=== PATIENT | male | born 1950 ===

== ENCOUNTER 2017-03-21 09:44 | Day surgery (SDC) | payer OTHER ==
--- NOTE | 2017-03-21 12:02 | CP.SDSHP ---
Same Day Surgery H & P - History Proposed Procedure: US guided FNA of submandibular node. Pre-Op Diagnosis: submandibular node. - Allergies Allergies: Allergies No Known Allergies Allergy (Verified 03/21/17 09:53) - Physical Exam Vital Signs: Vital Signs 03/21/17 09:59 Temperature 97 F L Pulse Rate 82 Respiratory 20 Rate Blood Pressure 147/72 O2 Sat by Pulse 20 L Oximetry Mental Status: Alert & Oriented x3 Neuro: WNL Heart: WNL - Impression Impression: Pt with right and left submandibular nodes. Plan US guided FNA of right submandibular node. Pt. Evaluated Today:Candidate for Anesthesia & Procedure: No Short Stay Discharge - Short Stay Discharge Admitting Diagnosis/Reason for Visit: NECK MASS Disposition: HOME/ ROUTINE
--- NOTE | 2017-03-21 12:03 | PCM.SURG1 ---
Surgeon's Initial Post Op Note - Surgeon's Notes Surgeon: Juan A De Oliveira MD Mixing Picker Tender: NONE Type of Anesthesia: Local Pre-Operative Diagnosis: submandibular node. Operative Findings: US showed bilateral 3 cm submandibular nodes. Post-Operative Diagnosis: submandibular node. Operation Performed: US guided FNA of submandibular node. Specimen/Specimens Removed: 25 g FNA x 6 passes Estimated Blood Loss: EBL {In ML}: 0 Blood Products Given: N/A Drains Used: No Drains Post-Op Condition: Good Date of Surgery/Procedure: 03/21/17 Time of Surgery/Procedure: 12:00
[2017-03-21 12:17] VITALS: BP 136/76; PULSE 60; RESP 18; TEMP 97.9; O2SAT 100
--- NOTE | 2017-03-21 14:54 | US ---
PROCEDURE: Date of procedure: 03/21/2017 Procedure: Ultrasound-guided FNA of right submandibular lymph node, CPT 61400 Ultrasound guidance for biopsy, 30841 Medications: 4cc 1% Lidocaine HISTORY: Enlarged right and left submandibular lymph nodes. TECHNIQUE: Following informed consent and procedure time-out, limited ultrasound patient's right neck demonstrates an enlarged jugular chain lymph node in the submandibular region measuring 3.2 centimeters. Also present enlarged left submandibular lymph node. The lymph node has a fatty hilum. The patient's neck was prepped and draped in the usual sterile fashion. The skin was anesthetized with 1 percent lidocaine. Ultrasound-guided fine needle aspiration was then performed using a 25 gauge needle. A total of 6 passes were made into the lymph node under direct ultrasound guidance. FNA specimens were obtained and sent for routine pathology and flow cytometry. A post biopsy ultrasound showed no hematoma IMPRESSION: Ultrasound-guided FNA of enlarged right neck lymph node.
== END 2017-03-21 12:18 | disposition home or self-care (01) ==
LOC: C.SPRAD 09:44
PROVIDERS: ATTEND Radiology Vascular & Interventional Radiology
DX: R59.0 Localized enlarged lymph nodes (principal); R22.1 Localized swelling, mass and lump, neck

== ENCOUNTER 2017-04-22 06:27 | Day surgery (SDC) | payer OTHER ==
[2017-04-09 08:23] VITALS: BMI 25.9
[2017-04-22] MEDS ORDERED: ceFAZolin IV 1 gm in Dextrose 1 GM/50 ML BAG IVPB ONE (07:28)
[2017-04-22] MEDS ORDERED: Lidocaine 1% w Epi 1:100,000 Inj ONE (07:29)
[2017-04-22] MEDS ORDERED: EPINEPHrine 1:1000 Nasal Sol(30mL) ONE (07:29)
[2017-04-22] MEDS ORDERED: Propofol 10 mg/ml Inj (20 ML) ONE (07:42)
[2017-04-22] MEDS ORDERED: Midazolam 2 MG/2 ML VIAL ONE (07:42)
[2017-04-22] MEDS ORDERED: Phenylephrine 10 mg/ml Inj ONE (07:44)
[2017-04-22] MEDS ORDERED: Rocuronium 10 mg/ml (5 ml) ONE (07:44)
[2017-04-22] MEDS ORDERED: Lactated Ringer's 1,000 ML IV ONE ×2 (07:45→09:00)
[2017-04-22] MEDS ORDERED: Neostigmine Methylsulfate 3mg/3ml Syringe IV ONE (08:16)
[2017-04-22] MEDS ORDERED: Acetaminophen-Codeine 300/30 mg Tab PO PRN (09:17)
[2017-04-22] MEDS ORDERED: Dextrose 5%/0.45% NS 1,000 ML IV SCH (09:30)
[2017-04-22] MEDS ORDERED: HYDROmorphone 0.5 mg/0.5 ml ISec IVP PRN (09:33)
--- NOTE | 2017-04-22 09:38 | OP ---
PROCEDURE DATE: 04/22/2017 PREOPERATIVE DIAGNOSES: Sinusitis, deviated septum, enlarged turbinates. POSTOPERATIVE DIAGNOSES: Sinusitis, deviated septum, enlarged turbinates. PROCEDURE: Septoplasty, endoscopic bilateral maxillary antrostomy, endoscopic bilateral ethmoidectom y, endoscopic bilateral inferior turbinate reduction, ____ navigation. 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 DESCRIPTION OF PROCEDURE: The patient was brought in the room, placed in supine position. Anesthesi a was initiated through an ET tube. Adrenaline-soaked pledgets were inserted in the nasal cavities a nd removed after 5 minutes. Navigation was set up and used throughout the case in order to make sure the skull were not entered. The patient was draped in the usual manner. The septum was injected wi th lidocaine with epinephrine on both sides. A hemitransfixion incision was made on the left, then m ucoperichondrial flap was raised. A vertical incision was made in the cartilage leaving a 1.5 cm ant erior and superior strut, and a mucoperichondrial flap was raised on the other side. Deviated portio n of the cartilage and bone was removed using forceps and chisel. Quilting suture was used to suture the 2 flaps together and close the hemitransfixion incision. A 0-degree scope was inserted in the n ellen cavity. The inferior turbinates were noted to be enlarged and reduced using scissors, going fro m an inferior to superior, anterior to posterior direction on both sides, first on the left then on t he right. Bleeding was controlled using suction cautery on both sides. Next, attention was turned to the left. The middle turbinate was injected with lidocaine with epinep hrine and medialized. The uncinate process was medialized using a [place] elevator and removed using f orceps. Debrider was used to enter the ethmoid bulla inferomedially going posteriorly to the basal l amella, then anteriorly and superiorly until the ethmoid bulla was removed. The basal lamella was en tered. Posterior ethmoid cells were entered and opened. Skull base was identified and followed ante riorly all the way to the area of the anterior ethmoid air cells. Curved suction hooked up to naviga tion was used to locate the maxillary antrum, which was noted to be stenosed and opened using forceps . Bleeding was controlled using suction cautery and adrenaline-soaked pledgets. Next, attention was turned to the other side. The middle turbinate was injected with lidocaine with epinephrine and medialized. The uncinate process was medialized using a [place] elevator and removed u sing forceps. The ethmoid bulla was entered inferomedially going posteriorly to the basal lamella, t hen anteriorly and superiorly until the ethmoid bulla was removed. Basal lamella was entered. Poste rior ethmoid cells were entered and opened. Skull base was identified and followed anteriorly all th e way to the area of the anterior ethmoid air cells. Curved suction hooked up to navigation was used to locate the maxillary antrum, which was noted to be stenosed and opened using forceps. Bleeding w as controlled using adrenaline-soaked pledgets and suction cautery on both sides. Stents were placed . Splints were placed. The patient was taken off anesthesia and [facility]. Karthik Pedroza MD cc: [id number] TT: 04/22/2017 09:38:31 jn
[2017-04-22 11:20] VITALS: RESP 17; TEMP 98.1
[2017-04-22 12:08] VITALS: O2SAT 98
[2017-04-22 12:10] VITALS: BP 122/71; PULSE 76
== END 2017-04-22 11:50 | disposition home or self-care (01) ==
LOC: C.SDS 06:27
PROVIDERS: ATTEND Otolaryngology
DX: J34.2 Deviated nasal septum (principal); J32.0 Chronic maxillary sinusitis; J32.2 Chronic ethmoidal sinusitis
CPT/HCPCS: 30130; 30520; 31255; 31256; 88304; J0690; J1170; J2001; J2250; J2370; J2405; J2704; J2710; J3010; J7120